=== PATIENT | female | born 1995 | race Caucasian/White ===

== ENCOUNTER → 2017-03-02 | Outpatient (CLI) | payer OTHER | LOC: EDBD → MW.CHOBGYN 09:54 | PROVIDERS: ATTEND Obstetrics & Gynecology | DX: Z34.90 Encounter for supervision of normal pregnancy, unspecified, unspecified trimester (principal) | CPT/HCPCS: 81003; 87491; 87591 ==

== ENCOUNTER → 2017-03-09 | Outpatient (CLI) | payer OTHER ==
--- NOTE | 2017-03-09 16:06 | US ---
Examination: Greater than 14 weeks transabdominal ultrasound with color Doppler and M-mode evaluatio n. HISTORY: Screening FINDINGS: LMP is 10/25/2016 EVALUATION: Posterior placenta with a cephalic lie and grade 1. Visually amniotic fluid is wit hin normal limits. Three-vessel cord is reported. Ventricles are within normal limits. Nuchal fold thickness is 2 mm. Four chamber heart is noted. Heart rate is 150 beats per minute. BIOMETRY AND GESTATIONAL AGE: Biparietal diameter 4.4 cm. The abdominal circumference measured 13.7 cm. The femoral length is 3.0 cm with head circumference of 16.9 cm. Gestational age is 19 weeks and 2 days. The expected date of delivery is approximately 08/01/2017. Fetus weight is 282 grams. Overall the fetus is within the 43r d percentile. Other detail anatomy summarized into PACs sheet after the images. Adequate LVOT and RVOT imaging is not provided. Mildly prominent renal pelvises bilaterally measurin g 5 mm. IMPRESSION: 1. Single active IU with cephalic fetus. 2. Posterior placenta with grade 1, no placenta previa. 3. Mildly prominent renal pelvises bilaterally measuring up to 5 mm. Follow-up may be benefici al.
== END ==
LOC: EDBD 13:48 → MW.US 13:48
PROVIDERS: ATTEND Obstetrics & Gynecology
DX: Z36 Encounter for antenatal screening of mother (principal); Z3A.19 19 weeks gestation of pregnancy
CPT/HCPCS: 76805; 76805-26

== ENCOUNTER 2017-07-25 00:20 | Inpatient (IN) | payer OTHER ==
[2017-07-25] MEDS ORDERED: Nalbuphine 10 MG/1 ML Vial IVPUSH PRN (00:30)
[2017-07-25] MEDS ORDERED: Misoprostol 200 MCG Tab PO PRN (00:30)
[2017-07-25] MEDS ORDERED: Sodium Chloride 0.9% 10 ML Syringe FLUSH PRN (00:30)
[2017-07-25] MEDS ORDERED: Methylergonovine 0.2 MG/1 ML Amp IM PRN (00:30)
[2017-07-25] MEDS ORDERED: Butorphanol 1 MG/ML SDV IVPUSH PRN (00:30)
[2017-07-25] MEDS ORDERED: Water For Irrigation,Sterile 1,000 ML Container IRR PRN (00:30)
[2017-07-25] MEDS ORDERED: Lidocaine 1% 50 ML MDV INJECT PRN (00:30)
[2017-07-25] MEDS ORDERED: Carboprost Tromethamine 250 MCG/1 ML Amp IM PRN (00:30)
[2017-07-25] MEDS ORDERED: Oxytocin/0.9 % Sodium Chloride 30 UNIT/500 ML BAG IV SCH ×2 (00:30→12:00)
[2017-07-25] MEDS ORDERED: Sodium Chloride 0.9% 2.5 ML Syringe FLUSH PRN (00:30)
[2017-07-25] MEDS ORDERED: Terbutaline 1 MG/ML SDV SUBCUT PRN (00:33)
[2017-07-25] MEDS ORDERED: FLU Vacc QS 2017-18 (36mos UP)/PF 60 MCG/0.5 ML Syringe IM ONE (00:45)
[2017-07-25] MEDS ORDERED: Misoprostol 25 MCG (1/4 of 100 MCG) Tab PO SCH (00:45)
[2017-07-25] MEDS ORDERED: Misoprostol 25 MCG (1/4 of 100 MCG) Tab VAG SCH (00:45)
[2017-07-25] MEDS: Misoprostol 25 MCG (1/4 of 100 MCG) Tab PO PRN ×2 (01:08→05:16)
[2017-07-25] MEDS: Misoprostol 25 MCG (1/4 of 100 MCG) Tab VAG PRN ×2 (01:13→05:24)
[2017-07-25] MEDS: Lactated Ringers 1,000 ML IV SCH ×3 (01:44→08:30)
[2017-07-25] MEDS ORDERED: hydrOXYzine Pamoate 25 MG Cap PO ONE (03:03)
--- NOTE | 2017-07-25 07:26 | PCM.PREANE ---
Preanesthetic Assessment - Procedure Proposed Procedure: MARLEN - Anesthesia/Transfusion/Family Hx Anesthesia History: No Prior Anesthesia Transfusion History: No Prior Transfusion(s) - Review of Systems General: No Symptoms Pulmonary: No Symptoms Cardiovascular: No Symptoms Gastrointestinal: No Symptoms Neurological: No Symptoms Other: Reports: None - Physical Assessment Height: 1.62 m Weight: 88.11 kg ASA Class: 1 Mental Status: Alert & Oriented x3 Airway Class: Mallampati = 3 Dentition: Reports: Normal Dentition Thyro-Mental Finger Breadths: 3 Mouth Opening Finger Breadths: 4 ROM/Head Extension: Full Lungs: Clear to Auscultation, Normal Respiratory Effort Cardiovascular: Regular Rate, Regular Rhythm - Lab Values: Laboratory Last Values WBC 10.24 K/uL (4.0-11.0) 07/25/17 00:44 RBC 4.22 M/uL (4.30-5.90) L 07/25/17 00:44 Hgb 11.8 g/dL (12.0-16.0) L 07/25/17 00:44 Hct 36.6 % (36.0-46.0) 07/25/17 00:44 MCV 86.7 fL (80.0-98.0) 10 00:44 MCH 28.0 pg (27.0-32.0) 07/25/17 00:44 MCHC 32.2 g/dL (31.0-37.0) 10 00:44 RDW Std Deviation 39.5 fl (28.0-62.0) 07/25/17 00:44 RDW Coeff of Fernando 13 % (11.0-15.0) 07/25/17 00:44 Plt Count 296 K/uL (150-400) 07/25/17 00:44 MPV 11.20 fL (7.40-12.00) 10 00:44 Blood Type B POSITIVE 07/25/17 00:44 Antibody Screen NEGATIVE 07/25/17 00:44 - Allergies Allergies/Adverse Reactions: Allergies Allergy/AdvReac Type Severity Reaction Status Date / Time No Known Allergies Allergy Verified 07/25/17 00:29 - Blood Blood Available: Yes Product(s) Available: PRBC - Anesthesia Plan Pre-Op Medication Ordered: None - Acknowledgements Anesthesia Type Planned: Epidural Pt an Appropriate Candidate for the Planned Anesthesia: Yes Alternatives and Risks of Anesthesia Discussed w Pt/Guardian: Yes Pt/Guardian Understands and Agrees with Anesthesia Plan: Yes PreAnesthesia Questionnaire - Past Health History Medical/Surgical History: Denies Medical/Surgical History HEENT History: Reports: None Cardiovascular History: Reports: None Respiratory History: Reports: None Gastrointestinal History: Reports: None Genitourinary History: Reports: None 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 Para: 0 Musculoskeletal History: Reports: None Neurological History: Reports: None Psychiatric History: Reports: None Endocrine/Metabolic History: Reports: None Hematologic History: Reports: None - Infectious Disease History Infectious Disease History: Reports: None - Past Surgical History HEENT Surgical History: Reports: Other (See Below) Other HEENT Surgeries/Procedures: tubes in ears as child - SUBSTANCE USE Smoking Status *Q: Never Smoker Second Hand Smoke Exposure: No - HOME MEDS Home Medications: Home Meds Melatonin 1 mg PO BEDTIME 07/25/17 [History] Vit W-Ca,Fe,FA(<1 mg) [ Vitamins] 1 tab PO DAILY 07/25/17 [ History] - CURRENT (IN HOUSE) MEDS Current Meds: Current Medications Butorphanol Tartrate (Stadol) 1 mg IVPUSH Q1H PRN PRN Reason: Pain Carboprost Tromethamine (Hemabate Ds) 250 mcg IM ASDIRECTED PRN PRN Reason: Post Hemorrhage Lactated Ringer's (Ringers, Lactated) 1,000 mls @ 150 mls/hr IV ASDIRECTED FRANCISCO Last Admin: 07/25/17 04:30 Dose: 150 mls/hr Oxytocin/Sodium Chloride (Oxytocin 30 Unit/500 Ml-Ns) 30 unit in 500 mls @ 999 mls/hr IV TITRATE FRANCISCO Lidocaine HCl (Xylocaine 1%) 50 ml INJECT .ONCE PRN PRN Reason: Laceration repair Methylergonovine Maleate (Methergine) 0.2 mg IM ASDIRECTED PRN PRN Reason: Post Hemorrhage Misoprostol (Cytotec) 200 mcg PO .ONCE PRN PRN Reason: Post Hemorrhage Misoprostol (Cytotec) 25 mcg VAG .ONCE FRANCISCO Misoprostol (Cytotec) 25 mcg VAG Q4H PRN PRN Reason: Cervical Ripening Last Admin: 07/25/17 05:24 Dose: 25 mcg Misoprostol (Cytotec) 25 mcg PO Q4H PRN PRN Reason: Cervical Ripening Last Admin: 07/25/17 05:16 Dose: 25 mcg Nalbuphine HCl (Nubain) 10 mg IVPUSH Q1H PRN PRN Reason: Pain (severe 7-10) Sodium Chloride (Saline Flush) 10 ml FLUSH ASDIRECTED PRN PRN Reason: Keep Vein Open Sodium Chloride (Saline Flush) 2.5 ml FLUSH ASDIRECTED PRN PRN Reason: Keep Vein Open Sterile Water (Sterile Water For Irrigation) 1,000 ml IRR ASDIRECTED PRN PRN Reason: delivery Terbutaline Sulfate (Brethine) 0.25 mg SUBCUT ASDIRECTED PRN PRN Reason: Tacysystole Discontinued Medications Hydroxyzine Pamoate (Vistaril) 25 mg PO ONETIME ONE Stop: 07/25/17 03:04 Last Admin: 07/25/17 03:09 Dose: 25 mg Misoprostol (Cytotec) 25 mcg PO .ONCE FRANCISCO
[2017-07-25] MEDS ORDERED: fentaNYL 100 MCG/2 ML SDV ONE (07:36)
[2017-07-25] MEDS ORDERED: Ropivacaine HCl/PF 100 ML ONE (07:37)
--- NOTE | 2017-07-25 08:08 | PCM.LDHP ---
L&D History of Present Illness - General Date of Service: 07/25/17 Admit Problem/Dx: Patient Status Order with Admit Dx/Problem 07/25/17 00:30 Patient Status [ADT] Routine Admission Diagnosis/Problem Admission Diagnosis/Problem Source of Information: Patient History Limitations: Reports: No Limitations - History of Present Illness Improves with: Reports: None Worsens with: Reports: None Associated Symptoms: Reports: N - Related Data Allergies/Adverse Reactions: Allergies Allergy/AdvReac Type Severity Reaction Status Date / Time No Known Allergies Allergy Verified 07/25/17 00:29 Home Medications: Home Meds Melatonin 1 mg PO BEDTIME 07/25/17 [History] Vit W-Ca,Fe,FA(<1 mg) [ Vitamins] 1 tab PO DAILY 07/25/17 [ History] Past Medical History - Past Health History Medical/Surgical History: Denies Medical/Surgical History HEENT History: Reports: None Cardiovascular History: Reports: None Respiratory History: Reports: None Gastrointestinal History: Reports: None Genitourinary History: Reports: None 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: Musculoskeletal History: Reports: None Neurological History: Reports: None Psychiatric History: Reports: None Endocrine/Metabolic History: Reports: None Hematologic History: Reports: None - Infectious Disease History Infectious Disease History: Reports: None - Past Surgical History HEENT Surgical History: Reports: Other (See Below) Other HEENT Surgeries/Procedures: tubes in ears as child Social & Family History - Tobacco Use Smoking Status *Q: Never Smoker Second Hand Smoke Exposure: No H&P Review of Systems - Review of Systems: Review Of Systems: See Below General: Reports: No Symptoms HEENT: Reports: No Symptoms Pulmonary: Reports: No Symptoms Cardiovascular: Reports: No Symptoms Gastrointestinal: Reports: No Symptoms Genitourinary: Reports: No Symptoms Musculoskeletal: Reports: No Symptoms Skin: Reports: No Symptoms Psychiatric: Reports: No Symptoms Neurological: Reports: No Symptoms Hematologic/Lymphatic: Reports: No Symptoms Immunologic: Reports: No Symptoms L&D Exam - Exam Exam: See Below - Vital Signs Weight: 88.11 kg - OB Specific Fundal Height In cm: 38 Contraction Intensity: Moderate to Strong Movement: Active Heart Tones: Present Heart Rate (FHR) Variability: Moderate (6-25 bmp) Presentation: Vertex - Andrews Score Andrews Score Cervix Position: Anterior Andrews Score Consistency: Soft Andrews Score Effacement: >80% Andrews Score Dilation: > 5 cm Andrews Score 's Station: -1 ,0 Andrews Score Total: 12 - Exam General: Alert, Oriented HEENT: PERRLA, Conjunctiva Clear, EACs Clear, EOMI, Hearing Intact, Mucosa Moist & [place], Nares Patent, Normal Nasal Septum, Posterior Pharynx Clear, TMs Clear Neck: Supple, Trachea Midline Lungs: Clear to Auscultation, Normal Respiratory Effort Cardiovascular: Regular Rate, Regular Rhythm GI/Abdominal Exam: Normal Bowel Sounds, Soft, Non-Tender, No Organomegaly, No Distention, No Abnormal Bruit, No Mass, Pelvis Stable Rectal Exam: Normal Exam, Normal Rectal Tone Genitourinary: Normal external exam, Normal bimanual exam, Normal speculum exam Back Exam: Normal Inspection, Full Range of Motion Extremities: Normal Inspection, Normal Range of Motion, Non-Tender, No Pedal Edema, Normal Capillary Refill Skin: Warm, Dry, Intact Neurological: Cranial Nerves Intact, Reflexes Equal Bilateral Psychiatric: Alert, Normal Affect, Normal Mood - Patient Data Lab Results Last 24 hrs: Laboratory Results - last 24 hr 07/25/17 07/25/17 Range/Units 00:44 00:44 WBC 10.24 (4.0-11.0) K/uL RBC 4.22 L (4.30-5.90) M/uL Hgb 11.8 L (12.0-16.0) g/dL Hct 36.6 (36.0-46.0) % MCV 86.7 (80.0-98.0) fL MCH 28.0 (27.0-32.0) pg MCHC 32.2 (31.0-37.0) g/dL RDW Std Deviation 39.5 (28.0-62.0) fl RDW Coeff of Fernando 13 (11.0-15.0) % Plt Count 296 (150-400) K/uL MPV 11.20 (7.40-12.00) fL Blood Type B POSITIVE Antibody Screen NEGATIVE Result Diagrams: 07/25/17 00:44 Problem List Initiated/Reviewed/Updated: Yes Orders Last 24hrs: Active Orders 24 hr Category Date Time Status Patient Status [ADT] Routine ADT 07/25/17 00:30 Active Bedrest Bathroom Privileges [RC] ASDIRECTED Care 07/25/17 00:33 Active Communication Order [RC] ASDIRECTED Care 07/25/17 00:33 Active Communication Order [RC] ASDIRECTED Care 07/25/17 00:33 Active Communication Order [RC] ASDIRECTED Care 07/25/17 00:33 Active Heart Tones [RC] CONTINUOUS Care 07/25/17 00:30 Active Non Stress Test [RC] PER UNIT ROUTINE Care 07/25/17 00:30 Active May Shower [RC] ASDIRECTED Care 07/25/17 00:30 Active Notify Provider [RC] PRN Care 07/25/17 00:30 Active Notify Provider [RC] PRN Care 07/25/17 00:33 Active Notify Provider [RC] PRN Care 07/25/17 00:33 Active Notify Provider [RC] STAT Care 07/25/17 00:33 Active Oxygen Therapy [RC] ASDIRECTED Care 07/25/17 00:33 Active Up ad Lisa [RC] ASDIRECTED Care 07/25/17 00:30 Active Vaginal Exam [RC] PRN Care 07/25/17 00:30 Active Vaginal Exam [RC] PRN Care 07/25/17 00:33 Active Vital Signs [RC] PER UNIT ROUTINE Care 07/25/17 00:30 Active Vital Signs [RC] PER UNIT ROUTINE Care 07/25/17 00:33 Active Butorphanol [Stadol] Med 07/25/17 00:30 Active 1 mg IVPUSH Q1H PRN Carboprost Tromethamine [Hemabate DS] Med 07/25/17 00:30 Active 250 mcg IM ASDIRECTED PRN Lactated Ringers [Ringers, Lactated] 1,000 ml Med 07/25/17 00:30 Active IV ASDIRECTED Lidocaine 1% [Xylocaine 1%] Med 07/25/17 00:30 Active 50 ml INJECT .ONCE PRN Methylergonovine [Methergine] Med 07/25/17 00:30 Active 0.2 mg IM ASDIRECTED PRN Misoprostol [Cytotec] Med 07/25/17 00:30 Active 200 mcg PO .ONCE PRN Misoprostol [Cytotec] Med 07/25/17 00:33 Active 25 mcg PO Q4H PRN Misoprostol [Cytotec] Med 07/25/17 00:45 Active 25 mcg VAG .ONCE Misoprostol [Cytotec] Med 07/25/17 00:33 Active 25 mcg VAG Q4H PRN Nalbuphine [Nubain] Med 07/25/17 00:30 Active 10 mg IVPUSH Q1H PRN Oxytocin/0.9 % Sodium Chloride [Oxytocin 30 Unit/500 ML Med 07/25/17 00:30 Active -NS] 30 unit in 500 ml IV TITRATE Sodium Chloride 0.9% [Saline Flush] Med 07/25/17 00:30 Active 10 ml FLUSH ASDIRECTED PRN Sodium Chloride 0.9% [Saline Flush] Med 07/25/17 00:30 Active 2.5 ml FLUSH ASDIRECTED PRN Terbutaline [Brethine] Med 07/25/17 00:33 Active 0.25 mg SUBCUT ASDIRECTED PRN Water For Irrigation,Sterile [Sterile Water for Med 07/25/17 00:30 Active Irrigation] 1,000 ml IRR ASDIRECTED PRN Scalp Electrode [WOMSER] Per Unit Routine Oth 07/25/17 00:30 Ordered Medication Administration Instruction [OM.PC] Q3H Oth 07/25/17 00:45 Ordered Peripheral IV Insertion Adult [OM.PC] Routine Oth 07/25/17 00:30 Ordered Resuscitation Status Routine Resus Stat 07/25/17 00:30 Ordered Medication Orders Butorphanol Tartrate (Stadol) 1 mg IVPUSH Q1H PRN PRN Reason: Pain Carboprost Tromethamine (Hemabate Ds) 250 mcg IM ASDIRECTED PRN PRN Reason: Post Hemorrhage Lactated Ringer's (Ringers, Lactated) 1,000 mls @ 150 mls/hr IV ASDIRECTED FRANCISCO Last Admin: 07/25/17 04:30 Dose: 150 mls/hr Infusion: 07/25/17 02:45 Dose: 999 mls/hr Admin: 07/25/17 01:44 Dose: 999 mls/hr Oxytocin/Sodium Chloride (Oxytocin 30 Unit/500 Ml-Ns) 30 unit in 500 mls @ 999 mls/hr IV TITRATE FRANCISCO Lidocaine HCl (Xylocaine 1%) 50 ml INJECT .ONCE PRN PRN Reason: Laceration repair Methylergonovine Maleate (Methergine) 0.2 mg IM ASDIRECTED PRN PRN Reason: Post Hemorrhage Misoprostol (Cytotec) 200 mcg PO .ONCE PRN PRN Reason: Post Hemorrhage Misoprostol (Cytotec) 25 mcg VAG .ONCE FRANCISCO Misoprostol (Cytotec) 25 mcg VAG Q4H PRN PRN Reason: Cervical Ripening Last Admin: 07/25/17 05:24 Dose: 25 mcg Admin: 07/25/17 01:13 Dose: 25 mcg Misoprostol (Cytotec) 25 mcg PO Q4H PRN PRN Reason: Cervical Ripening Last Admin: 07/25/17 05:16 Dose: 25 mcg Admin: 07/25/17 01:08 Dose: 25 mcg Nalbuphine HCl (Nubain) 10 mg IVPUSH Q1H PRN PRN Reason: Pain (severe 7-10) Sodium Chloride (Saline Flush) 10 ml FLUSH ASDIRECTED PRN PRN Reason: Keep Vein Open Sodium Chloride (Saline Flush) 2.5 ml FLUSH ASDIRECTED PRN PRN Reason: Keep Vein Open Sterile Water (Sterile Water For Irrigation) 1,000 ml IRR ASDIRECTED PRN PRN Reason: delivery Terbutaline Sulfate (Brethine) 0.25 mg SUBCUT ASDIRECTED PRN PRN Reason: Tacysystole Assessment/Plan Comment:: Term (39+) P0000 Admitted for elective induction.
[2017-07-25] MEDS ORDERED: Lanolin 100% Cream 7 GM Tube TOP PRN (17:39)
[2017-07-25] MEDS ORDERED: Docusate Sodium 100 MG Cap PO PRN (17:39)
[2017-07-25] MEDS ORDERED: oxyCODONE 5 MG Tab PO PRN (17:39)
[2017-07-25] MEDS ORDERED: Acetaminophen 500 MG Tab PO PRN ×2 (17:39)
[2017-07-25] MEDS ORDERED: Bisacodyl 10 MG Supp RECTAL PRN (17:39)
[2017-07-25] MEDS ORDERED: Benzocaine/Menthol 20%-0.5% Spray 78 GM Cannister TOP PRN (17:39)
[2017-07-25] MEDS ORDERED: Ibuprofen 400 MG Tab PO PRN (17:39)
[2017-07-25] MEDS ORDERED: Witch Hazel Medicated Pads 40/Jar TOP PRN (17:39)
--- NOTE | 2017-07-25 17:48 | PCM.DEL ---
L & D Note - General Info Date of Service: 07/25/17 Mother's Due Date: 08/01/17 - Delivery Note Labor: Augmented by Oxytocin Cervical Ripening Method: Misoprostil Delivery Outcome: Livebirth Delivery Method: Spontaneous Vaginal Delivery-Single Infant Delivery Mode: Spontaneous Presentation: Vertex Nuchal Cord: Present Anesthesia Type: Epidural Anesthetic: Lidocaine (Xylocaine) 1% Plain Local Anesthetic Volume: 1cc Amniotic Fluid Description: Clear Episiotomy Type: None Laceration: 2nd Degree Suture type: Vicryl Suture size: 3-0 Placenta: Intact, Spontaneous Cord: 3 Vessels Estimated Blood Loss: 200 Resuscitation Needed: No : Stimulated Score 1 min: 8 Score 5 min: 9 Second Stage Interventions: Reports: Pushing, Pulls Own Legs Back Delivery Comments (Free Text/Narrative):: of viable male over intact perineum. Head delivered OP, nuchal x1 reduced over head, shoulders and body followed easily. to mothers abdomen. Pitocin to IVF, Delayed cord clamping. Cord clamped x2 and cut. Cord blood collected. Placenta delivered grossly intact. Inspection noted 2nd degree laceration, repaired in usual manor with a 3-0 carlos. EBL 200cc. APGARS 8/9 Wt 7lb 2oz. Mother and left in stable condition for recovery. Induction Criteria - Induction Gestational Age >/= 39 wks: Yes Estimated Pelvis: Reports: Adequate Reassuring Monitoring Strip: Yes Absence of Tachy Systole: Yes - General Info Admission Dx/Problem (Free Text): Patient Status Order with Admit Dx/Problem 07/25/17 00:30 Patient Status [ADT] Routine Admission Diagnosis/Problem Admission Diagnosis/Problem Functional Status: Reports: Pain Controlled - Review of Systems General: Reports: No Symptoms HEENT: Reports: No Symptoms Pulmonary: Reports: No Symptoms Cardiovascular: Reports: No Symptoms Gastrointestinal: Reports: No Symptoms Genitourinary: Reports: No Symptoms Musculoskeletal: Reports: No Symptoms Skin: Reports: No Symptoms Neurological: Reports: No Symptoms Psychiatric: Reports: No Symptoms - Patient Data Weight - Most Recent: 88.11 kg Lab Results Last 24 Hours: Laboratory Results - last 24 hr 07/25/17 07/25/17 Range/Units 00:44 00:44 WBC 10.24 (4.0-11.0) K/uL RBC 4.22 L (4.30-5.90) M/uL Hgb 11.8 L (12.0-16.0) g/dL Hct 36.6 (36.0-46.0) % MCV 86.7 (80.0-98.0) fL MCH 28.0 (27.0-32.0) pg MCHC 32.2 (31.0-37.0) g/dL RDW Std Deviation 39.5 (28.0-62.0) fl RDW Coeff of Feranndo 13 (11.0-15.0) % Plt Count 296 (150-400) K/uL MPV 11.20 (7.40-12.00) fL Blood Type B POSITIVE Antibody Screen NEGATIVE Med Orders - Current: Current Medications Acetaminophen (Tylenol Extra Strength) 500 mg PO Q4H PRN PRN Reason: Pain Acetaminophen (Tylenol Extra Strength) 1,000 mg PO Q4H PRN PRN Reason: Pain Benzocaine/Menthol (Dermoplast Pain Relief 20%-0.5% Archbald) 78 gm TOP ASDIRECTED PRN PRN Reason: Perineal Comfort Measure Bisacodyl (Dulcolax) 10 mg RECTAL .ONCE PRN PRN Reason: Constipation Docusate Sodium (Colace) 100 mg PO BID PRN PRN Reason: Constipation Emollient Ointment (Lansinoh Hpa) 0 gm TOP ASDIRECTED PRN PRN Reason: Sore Nipples Ibuprofen (Motrin) 400 mg PO Q4H PRN PRN Reason: Pain Ibuprofen (Motrin) 800 mg PO Q6H PRN PRN Reason: Pain Oxycodone HCl (Oxycodone) 5 mg PO Q2H PRN PRN Reason: Pain Witch Che (Tucks) 1 pad TOP ASDIRECTED PRN PRN Reason: comfort care Discontinued Medications Butorphanol Tartrate (Stadol) 1 mg IVPUSH Q1H PRN PRN Reason: Pain Carboprost Tromethamine (Hemabate Ds) 250 mcg IM ASDIRECTED PRN PRN Reason: Post Hemorrhage Fentanyl (Sublimaze) Confirm Administered Dose 100 mcg .ROUTE .STK-MED ONE Stop: 07/25/17 07:37 Hydroxyzine Pamoate (Vistaril) 25 mg PO ONETIME ONE Stop: 07/25/17 03:04 Last Admin: 07/25/17 03:09 Dose: 25 mg Lactated Ringer's (Ringers, Lactated) 1,000 mls @ 150 mls/hr IV ASDIRECTED FRANCISCO Last Admin: 07/25/17 08:30 Dose: 150 mls/hr Oxytocin/Sodium Chloride (Oxytocin 30 Unit/500 Ml-Ns) 30 unit in 500 mls @ 999 mls/hr IV TITRATE FRANCISCO Last Admin: 07/25/17 16:22 Dose: 250 mls/hr Ropivacaine (Naropin 0.2%) Confirm Administered Dose 100 mls @ as directed .ROUTE .[facility]-MED ONE Stop: 07/25/17 07:38 Oxytocin/Sodium Chloride (Oxytocin 30 Unit/500 Ml-Ns) 30 unit in 500 mls @ 2 mls/hr IV TITRATE FRANCISCO; 2 MUNITS/MIN PRN Reason: Protocol Lidocaine HCl (Xylocaine 1%) 50 ml INJECT .ONCE PRN PRN Reason: Laceration repair Last Admin: 07/25/17 16:52 Dose: 50 ml Methylergonovine Maleate (Methergine) 0.2 mg IM ASDIRECTED PRN PRN Reason: Post Hemorrhage Misoprostol (Cytotec) 200 mcg PO .ONCE PRN PRN Reason: Post Hemorrhage Misoprostol (Cytotec) 25 mcg VAG .ONCE FRANCISCO Misoprostol (Cytotec) 25 mcg VAG Q4H PRN PRN Reason: Cervical Ripening Last Admin: 07/25/17 05:24 Dose: 25 mcg Misoprostol (Cytotec) 25 mcg PO .ONCE FRANCISCO Misoprostol (Cytotec) 25 mcg PO Q4H PRN PRN Reason: Cervical Ripening Last Admin: 07/25/17 05:16 Dose: 25 mcg Nalbuphine HCl (Nubain) 10 mg IVPUSH Q1H PRN PRN Reason: Pain (severe 7-10) Sodium Chloride (Saline Flush) 10 ml FLUSH ASDIRECTED PRN PRN Reason: Keep Vein Open Sodium Chloride (Saline Flush) 2.5 ml FLUSH ASDIRECTED PRN PRN Reason: Keep Vein Open Sterile Water (Sterile Water For Irrigation) 1,000 ml IRR ASDIRECTED PRN PRN Reason: delivery Terbutaline Sulfate (Brethine) 0.25 mg SUBCUT ASDIRECTED PRN PRN Reason: Tacysystole - Exam General: Alert, Oriented, Cooperative, No Acute Distress Lungs: Normal Respiratory Effort GI/Abdominal Exam: Soft, Non-Tender (Female) Exam: Normal External Exam, Normal Bimanual Exam, Vaginal Bleeding Back Exam: Full Range of Motion Extremities: Normal Range of Motion, Non-Tender, No Pedal Edema, Normal Capillary Refill Skin: Warm, Dry, Intact Wound/Incisions: Healing Well Neurological: No New Focal Deficit, Normal Speech, Normal Tone Psy/Mental Status: Alert, Normal Affect, Normal Mood - Problem List & Annotations (1) Supervision of normal IUP (intrauterine ) in primigravida SNOMED Code(s): 14117688, 799351594, 314983558 Code(s): Z34.00 - ENCNTR FOR SUPRVSN OF NORMAL FIRST , UNSP TRIMESTER Status: Acute Priority: High Current Visit: Yes Qualifiers: Trimester: third trimester Qualified Code(s): Z34.03 - Encounter for supervision of normal first , third trimester (2) (normal spontaneous vaginal delivery) SNOMED Code(s): 59447242 Code(s): O80 - ENCOUNTER FOR FULL-TERM UNCOMPLICATED DELIVERY Status: Acute Priority: High Current Visit: Yes - Problem List Review Problem List Initiated/Reviewed/Updated: Yes - My Orders Last 24 Hours: My Active Orders 07/25/17 17:39 Patient Status [ADT] Routine May Shower [RC] ASDIRECTED Up ad Lisa [RC] ASDIRECTED Vital Signs [RC] PER UNIT ROUTINE Acetaminophen [Tylenol Extra Strength] 1,000 mg PO Q4H PRN Acetaminophen [Tylenol Extra Strength] 500 mg PO Q4H PRN Benzocaine/Menthol [Dermoplast Pain Relief 20%-0.5% Archbald] 78 gm TOP ASDIRECTED PRN Bisacodyl [Dulcolax] 10 mg RECTAL .ONCE PRN Docusate Sodium [Colace] 100 mg PO BID PRN Ibuprofen [Motrin] 400 mg PO Q4H PRN Ibuprofen [Motrin] 800 mg PO Q6H PRN Lanolin [Lansinoh HPA] See Dose Instructions TOP ASDIRECTED PRN Witch Che [Tucks] 1 pad TOP ASDIRECTED PRN oxyCODONE 5 mg PO Q2H PRN Assess Lochia [WOMSER] Per Unit Routine Assess Uterine Involution [WOMSER] Per Unit Routine Peripheral IV Discontinue [OM.PC] Routine Resuscitation Status Routine 07/25/17 Dinner Regular Diet [DIET] - Assessment Assessment:: of viable male, APGARS 8/9, Wt 7lb 2oz. 2nd deg lac with repair. EBL 200cc. Stable - Plan Plan:: Term (39+) P0000 Admitted for elective induction. Delivery routine pp plan of care
[2017-07-25] MEDS: Ibuprofen 800 MG Tab PO PRN ×2 (17:58→23:35)
[2017-07-26] MEDS: Ibuprofen 800 MG Tab PO PRN (07:18)
--- NOTE | 2017-07-26 08:25 | PCM.DCSUM1 ---
Discharge Summary - Hospital Course Free Text/Narrative:: Discharge home with . Follow up 6 weeks or sooner if needed. - Discharge Data Discharge Date: 07/26/17 Discharge Disposition: Home, Self-Care 01 Condition: Good - Discharge Diagnosis/Problem(s) (1) Supervision of normal IUP (intrauterine ) in primigravida SNOMED Code(s): 20787631, 716093986, 016079877 ICD Code: Z34.00 - ENCNTR FOR SUPRVSN OF NORMAL FIRST , UNSP TRIMESTER Status: Acute Priority: High Current Visit: Yes Qualifiers: Trimester: third trimester Qualified Code(s): Z34.03 - Encounter for supervision of normal first , third trimester (2) (normal spontaneous vaginal delivery) SNOMED Code(s): 21105860 ICD Code: O80 - ENCOUNTER FOR FULL-TERM UNCOMPLICATED DELIVERY Status: Acute Priority: High Current Visit: Yes - Patient Instructions Diet: Usual Diet as Tolerated Activity: As Tolerated, Rest and Relax Today Driving: May Drive Today Showering/Bathing: May Shower Notify Provider of: Fever, Increased Pain, Swelling and Redness, Nausea and/or Vomiting Other/Special Instructions: Discharge home with . Follow up 6 weeks or sooner if needed. - Discharge Plan Home Medications: Home Meds Melatonin 1 mg PO BEDTIME 07/25/17 [History] Vit W-Ca,Fe,FA(<1 mg) [ Vitamins] 1 tab PO DAILY 07/25/17 [ History] Referrals: [facility] [Outside] Dustin Ventura MD [Physician] - 09/05/17 9:30 am - General Info Date of Service: 07/26/17 Admission Dx/Problem (Free Text: Patient Status Order with Admit Dx/Problem 07/25/17 00:30 Patient Status [ADT] Routine Admission Diagnosis/Problem Admission Diagnosis/Problem Functional Status: Reports: Pain Controlled, Tolerating Diet, Ambulating, Urinating - Review of Systems General: Reports: No Symptoms HEENT: Reports: No Symptoms Pulmonary: Reports: No Symptoms Cardiovascular: Reports: No Symptoms Gastrointestinal: Reports: No Symptoms Genitourinary: Reports: No Symptoms Musculoskeletal: Reports: No Symptoms Skin: Reports: No Symptoms Neurological: Reports: No Symptoms Psychiatric: Reports: No Symptoms - Patient Data Vitals - Most Recent: Last Vital Signs Temp 36.4 C 07/26/17 04:30 Pulse 87 07/26/17 08:00 Resp 14 07/26/17 08:00 BP 113/58 L 07/26/17 08:00 Pulse Ox 95 07/26/17 08:00 Weight - Most Recent: 88.11 kg Med Orders - Current: Current Medications Acetaminophen (Tylenol Extra Strength) 500 mg PO Q4H PRN PRN Reason: Pain Acetaminophen (Tylenol Extra Strength) 1,000 mg PO Q4H PRN PRN Reason: Pain Last Admin: 07/25/17 17:59 Dose: 1,000 mg Benzocaine/Menthol (Dermoplast Pain Relief 20%-0.5% [place]) 78 gm TOP ASDIRECTED PRN PRN Reason: Perineal Comfort Measure Bisacodyl (Dulcolax) 10 mg RECTAL .ONCE PRN PRN Reason: Constipation Docusate Sodium (Colace) 100 mg PO BID PRN PRN Reason: Constipation Last Admin: 07/25/17 20:13 Dose: 100 mg Emollient Ointment (Lansinoh Hpa) 0 gm TOP ASDIRECTED PRN PRN Reason: Sore Nipples Last Admin: 07/25/17 20:13 Dose: 1 tube Ibuprofen (Motrin) 400 mg PO Q4H PRN PRN Reason: Pain Ibuprofen (Motrin) 800 mg PO Q6H PRN PRN Reason: Pain Last Admin: 07/26/17 07:18 Dose: 800 mg Oxycodone HCl (Oxycodone) 5 mg PO Q2H PRN PRN Reason: Pain Witch Che (Tucks) 1 pad TOP ASDIRECTED PRN PRN Reason: comfort care Discontinued Medications Butorphanol Tartrate (Stadol) 1 mg IVPUSH Q1H PRN PRN Reason: Pain Carboprost Tromethamine (Hemabate Ds) 250 mcg IM ASDIRECTED PRN PRN Reason: Post Hemorrhage Fentanyl (Sublimaze) Confirm Administered Dose 100 mcg .ROUTE .STK-MED ONE Stop: 07/25/17 07:37 Last Admin: 07/26/17 04:55 Dose: Not Given Hydroxyzine Pamoate (Vistaril) 25 mg PO ONETIME ONE Stop: 07/25/17 03:04 Last Admin: 07/25/17 03:09 Dose: 25 mg Lactated Ringer's (Ringers, Lactated) 1,000 mls @ 150 mls/hr IV ASDIRECTED FRANCISCO Last Admin: 07/25/17 08:30 Dose: 150 mls/hr Oxytocin/Sodium Chloride (Oxytocin 30 Unit/500 Ml-Ns) 30 unit in 500 mls @ 999 mls/hr IV TITRATE FRANCISCO Last Admin: 07/25/17 16:22 Dose: 250 mls/hr Ropivacaine (Naropin 0.2%) Confirm Administered Dose 100 mls @ as directed .ROUTE .[facility]-MED ONE Stop: 07/25/17 07:38 Last Admin: 07/26/17 04:55 Dose: Not Given Oxytocin/Sodium Chloride (Oxytocin 30 Unit/500 Ml-Ns) 30 unit in 500 mls @ 2 mls/hr IV TITRATE FRANCISCO; 2 MUNITS/MIN PRN Reason: Protocol Lidocaine HCl (Xylocaine 1%) 50 ml INJECT .ONCE PRN PRN Reason: Laceration repair Last Admin: 07/25/17 16:52 Dose: 50 ml Methylergonovine Maleate (Methergine) 0.2 mg IM ASDIRECTED PRN PRN Reason: Post Hemorrhage Misoprostol (Cytotec) 200 mcg PO .ONCE PRN PRN Reason: Post Hemorrhage Misoprostol (Cytotec) 25 mcg VAG .ONCE FRANCISCO Misoprostol (Cytotec) 25 mcg VAG Q4H PRN PRN Reason: Cervical Ripening Last Admin: 07/25/17 05:24 Dose: 25 mcg Misoprostol (Cytotec) 25 mcg PO .ONCE FRANCISCO Misoprostol (Cytotec) 25 mcg PO Q4H PRN PRN Reason: Cervical Ripening Last Admin: 07/25/17 05:16 Dose: 25 mcg Nalbuphine HCl (Nubain) 10 mg IVPUSH Q1H PRN PRN Reason: Pain (severe 7-10) Sodium Chloride (Saline Flush) 10 ml FLUSH ASDIRECTED PRN PRN Reason: Keep Vein Open Sodium Chloride (Saline Flush) 2.5 ml FLUSH ASDIRECTED PRN PRN Reason: Keep Vein Open Sterile Water (Sterile Water For Irrigation) 1,000 ml IRR ASDIRECTED PRN PRN Reason: delivery Terbutaline Sulfate (Brethine) 0.25 mg SUBCUT ASDIRECTED PRN PRN Reason: Tacysystole - Exam General: Reports: Alert, Oriented, Cooperative, No Acute Distress Lungs: Reports: Normal Respiratory Effort GI/Abdominal Exam: Soft (Female) Exam: Vaginal Bleeding Rectal (Female) Exam: Deferred Back Exam: Reports: Full Range of Motion Extremities: Normal Range of Motion, Non-Tender, No Pedal Edema, Normal Capillary Refill Skin: Reports: Warm, Dry, Intact Wound/Incisions: Reports: Healing Well Neurological: Reports: No New Focal Deficit, Normal Speech, Normal Tone Psy/Mental Status: Reports: Alert, Normal Affect, Normal Mood *Q Meaningful Use (DIS) - VTE *Q VTE Criteria *Q: - Stroke *Q Stroke Criteria *Q: - AMI *Q AMI Criteria *Q:
[2017-07-26 16:32] VITALS: BP 107/55
--- NOTE | 2017-07-26 17:13 | PCM48HPAN ---
Post Anesthesia Note - EVALUATION WITHIN 48HRS OF ANESTHETIC Vital Signs in Normal Range: Yes Patient Participated in Evaluation: Yes Respiratory Function Stable: Yes Airway Patent: Yes Cardiovascular Function Stable: Yes Hydration Status Stable: Yes Pain Control Satisfactory: Yes Nausea and Vomiting Control Satisfactory: Yes Mental Status Recovered: Yes - COMMENTS/OBSERVATIONS Free Text/Narrative:: Denies any complaints except that back is sore.
[2017-07-26] MEDS: Lactated Ringers 1,000 ML IV SCH (18:42)
== END 2017-07-26 20:00 | disposition home or self-care (01) | DRG 775 ==
LOC: MW.OBCHECK 00:20 → MW.OB 00:29 → OBSVTOIN 16:20 → MW.OB 16:20
PROVIDERS: ATTEND Obstetrics & Gynecology
PROC: 10E0XZZ Delivery of Products of Conception, External Approach (ICD-10-PCS; principal; 2017-07-25)
PROC: 0KQM0ZZ Repair Perineum Muscle, Open Approach (ICD-10-PCS; 2017-07-25)
PROC: 3E0P7GC Introduction of Other Therapeutic Substance into Female Reproductive, Via Natural or Artificial Opening (ICD-10-PCS; 2017-07-25)
DX: O70.1 Second degree perineal laceration during delivery (principal); Z37.0 Single live birth; Z3A.39 39 weeks gestation of pregnancy
CPT/HCPCS: 51702; 59025; 59409; 85027; 86850; 86900; 86901; 90686; A9270-GY; J2590; J7120

== ENCOUNTER 2019-02-07 02:48 | Inpatient (IN) | payer OTHER ==
[2019-02-07] MEDS ORDERED: Butorphanol 1 MG/ML SDV IVPUSH PRN (02:58)
[2019-02-07] MEDS ORDERED: Sodium Chloride 0.9% 10 ML SDV IV PRN (02:58)
[2019-02-07] MEDS ORDERED: Lidocaine 1% 50 ML MDV INJECT PRN (02:58)
[2019-02-07] MEDS ORDERED: Water For Irrigation,Sterile 1,000 ML Container IRR PRN (02:58)
[2019-02-07] MEDS ORDERED: Methylergonovine 0.2 MG/1 ML Amp IM PRN (02:58)
[2019-02-07] MEDS ORDERED: Carboprost Tromethamine 250 MCG/1 ML Amp IM PRN (02:58)
[2019-02-07] MEDS ORDERED: Tranexamic Acid 1,000 MG in Sodium Chloride 0.9% 100 ML IV PRN (02:58)
[2019-02-07] MEDS ORDERED: Nalbuphine 10 MG/1 ML Vial IVPUSH PRN (02:58)
[2019-02-07] MEDS ORDERED: Sodium Chloride 0.9% 2.5 ML Syringe FLUSH PRN (02:58)
[2019-02-07] MEDS ORDERED: Misoprostol 200 MCG Tab PO PRN (02:58)
[2019-02-07] MEDS ORDERED: Sodium Chloride 0.9% 10 ML Syringe FLUSH PRN (02:58)
[2019-02-07] MEDS ORDERED: Oxytocin/0.9 % Sodium Chloride 30 UNIT/500 ML BAG IV SCH (03:00)
[2019-02-07] MEDS ORDERED: Lactated Ringers 1,000 ML IV SCH (03:00)
[2019-02-07] MEDS ORDERED: Oxytocin 10 Units/1 ML SDV ONE (03:09)
--- NOTE | 2019-02-07 03:24 | PCM.LDHP ---
L&D History of Present Illness - General Date of Service: 02/07/19 Admit Problem/Dx: Patient Status Order with Admit Dx/Problem 02/07/19 02:58 Patient Status [ADT] Routine Admission Diagnosis/Problem Admission Diagnosis/Problem - planned Source of Information: Patient History Limitations: Reports: No Limitations - History of Present Illness Improves with: Reports: None Worsens with: Reports: None Associated Symptoms: Reports: N - Related Data Allergies/Adverse Reactions: Allergies Allergy/AdvReac Type Severity Reaction Status Date / Time No Known Allergies Allergy Verified 07/25/17 00:29 Home Medications: Home Meds Melatonin 1 mg PO BEDTIME 07/25/17 [History] Vit Calc,Iron,Folic [ Vitamins] 1 tab PO DAILY 07/25/17 [ History] Past Medical History - Past Health History Medical/Surgical History: Denies Medical/Surgical History HEENT History: Reports: None Cardiovascular History: Reports: None Respiratory History: Reports: None Gastrointestinal History: Reports: None Genitourinary History: Reports: None CLIENT EVALUATOR History: Reports: Musculoskeletal History: Reports: None Neurological History: Reports: None Psychiatric History: Reports: None Endocrine/Metabolic History: Reports: None Hematologic History: Reports: None - Infectious Disease History Infectious Disease History: Reports: None - Past Surgical History HEENT Surgical History: Reports: Other (See Below) Other HEENT Surgeries/Procedures: tubes in ears as child H&P Review of Systems - Review of Systems: Review Of Systems: See Below General: Reports: No Symptoms HEENT: Reports: No Symptoms Pulmonary: Reports: No Symptoms Cardiovascular: Reports: No Symptoms Gastrointestinal: Reports: No Symptoms Genitourinary: Reports: No Symptoms Musculoskeletal: Reports: No Symptoms Skin: Reports: No Symptoms Psychiatric: Reports: No Symptoms Neurological: Reports: No Symptoms Hematologic/Lymphatic: Reports: No Symptoms Immunologic: Reports: No Symptoms L&D Exam - Exam Exam: See Below - OB Specific Contraction Intensity: Moderate to Strong Movement: Active Heart Tones: Present Presentation: Vertex - Andrews Score Andrews Score Cervix Position: Anterior Andrews Score Consistency: Soft Andrews Score Effacement: >80% Andrews Score Dilation: > 5 cm Andrews Score Infant's Station: -1 ,0 Andrews Score Total: 12 - Exam General: Alert, Oriented HEENT: PERRLA, Conjunctiva Clear, EACs Clear, EOMI, Hearing Intact, Mucosa Moist & [place], Nares Patent, Normal Nasal Septum, Posterior Pharynx Clear, TMs Clear Neck: Supple, Trachea Midline Lungs: Clear to Auscultation, Normal Respiratory Effort Cardiovascular: Regular Rate, Regular Rhythm GI/Abdominal Exam: Normal Bowel Sounds, Soft, Non-Tender, No Organomegaly, No Distention, No Abnormal Bruit, No Mass, Pelvis Stable Rectal Exam: Normal Exam, Normal Rectal Tone Genitourinary: Normal external exam, Normal bimanual exam, Normal speculum exam Back Exam: Normal Inspection, Full Range of Motion Extremities: Normal Inspection, Normal Range of Motion, Non-Tender, No Pedal Edema, Normal Capillary Refill Skin: Warm, Dry, Intact Neurological: Cranial Nerves Intact, Reflexes Equal Bilateral Psychiatric: Alert, Normal Affect, Normal Mood Problem List Initiated/Reviewed/Updated: Yes Orders Last 24hrs: Active Orders 24 hr Category Date Time Status Patient Status [ADT] Routine ADT 02/07/19 02:58 Active Heart Tones [RC] CONTINUOUS Care 02/07/19 02:58 Active Non Stress Test [RC] PER UNIT ROUTINE Care 02/07/19 02:58 Active May Shower [RC] ASDIRECTED Care 02/07/19 02:58 Active Notify Provider [RC] PRN Care 02/07/19 02:58 Active Up ad Lisa [RC] ASDIRECTED Care 02/07/19 02:58 Active Vaginal Exam [RC] PRN Care 02/07/19 02:58 Active Vital Signs [RC] PER UNIT ROUTINE Care 02/07/19 02:58 Active CBC W/O DIFF,HEMOGRAM [HEME] Routine Lab 02/07/19 02:58 Ordered TYPE AND SCREEN [BBK] Routine Lab 02/07/19 02:58 Ordered Butorphanol [Stadol] Med 02/07/19 02:58 Active 1 mg IVPUSH Q1H PRN Carboprost Tromethamine [Hemabate DS] Med 02/07/19 02:58 Active 250 mcg IM ASDIRECTED PRN Lactated Ringers [Ringers, Lactated] 1,000 ml Med 02/07/19 03:00 Active IV ASDIRECTED Lidocaine 1% [Xylocaine 1%] Med 02/07/19 02:58 Active 50 ml INJECT ONETIME PRN Methylergonovine [Methergine] Med 02/07/19 02:58 Active 0.2 mg IM ASDIRECTED PRN Nalbuphine [Nubain] Med 02/07/19 02:58 Active 10 mg IVPUSH Q1H PRN Oxytocin/0.9 % Sodium Chloride [Oxytocin 30 Unit/500 ML Med 02/07/19 03:00 Active -NS] 30 unit in 500 ml IV TITRATE Sodium Chloride 0.9% [Normal Saline] Med 02/07/19 02:58 Active 10 ml IV ASDIRECTED PRN Sodium Chloride 0.9% [Saline Flush] Med 02/07/19 02:58 Active 10 ml FLUSH ASDIRECTED PRN Sodium Chloride 0.9% [Saline Flush] Med 02/07/19 02:58 Active 2.5 ml FLUSH ASDIRECTED PRN Tranexamic Acid [Cyklokapron] 1,000 mg Med 02/07/19 02:58 Active Sodium Chloride 0.9% [Normal Saline] 100 ml IV ONETIME Water For Irrigation,Sterile [Sterile Water for Med 02/07/19 02:58 Active Irrigation] 1,000 ml IRR ASDIRECTED PRN miSOPROStol [Cytotec] Med 02/07/19 02:58 Active 200 mcg PO ONETIME PRN Scalp Electrode [WOMSER] Per Unit Routine Oth 02/07/19 02:58 Ordered Peripheral IV Insertion Adult [OM.PC] Routine Oth 02/07/19 02:58 Ordered Resuscitation Status Routine Resus Stat 02/07/19 02:58 Ordered Medication Orders Butorphanol Tartrate (Stadol) 1 mg IVPUSH Q1H PRN PRN Reason: Pain Carboprost Tromethamine (Hemabate Ds) 250 mcg IM ASDIRECTED PRN PRN Reason: Post Hemorrhage Lactated Ringer's (Ringers, Lactated) 1,000 mls @ 150 mls/hr IV ASDIRECTED FRANCISCO Oxytocin/Sodium Chloride (Oxytocin 30 Unit/500 Ml-Ns) 30 unit in 500 mls @ 500 mls/hr IV TITRATE FRANCISCO Tranexamic Acid 1,000 mg/ (Sodium Chloride) 110 mls @ 660 mls/hr IV ONETIME PRN PRN Reason: Bleeding Lidocaine HCl (Xylocaine 1%) 50 ml INJECT ONETIME PRN PRN Reason: Laceration repair Methylergonovine Maleate (Methergine) 0.2 mg IM ASDIRECTED PRN PRN Reason: Post Hemorrhage Misoprostol (Cytotec) 200 mcg PO ONETIME PRN PRN Reason: Post Hemorrhage Nalbuphine HCl (Nubain) 10 mg IVPUSH Q1H PRN PRN Reason: Pain (severe 7-10) Sodium Chloride (Saline Flush) 10 ml FLUSH ASDIRECTED PRN PRN Reason: Keep Vein Open Sodium Chloride (Saline Flush) 2.5 ml FLUSH ASDIRECTED PRN PRN Reason: Keep Vein Open Sodium Chloride (Normal Saline) 10 ml IV ASDIRECTED PRN PRN Reason: IV Use Sterile Water (Sterile Water For Irrigation) 1,000 ml IRR ASDIRECTED PRN PRN Reason: delivery Assessment/Plan Comment:: Pt presented in active labor. C/C/v/0 intact. IUP 38+.
[2019-02-07] MEDS ORDERED: Docusate Sodium 100 MG Cap PO PRN (03:44)
[2019-02-07] MEDS ORDERED: Ibuprofen 400 MG Tab PO PRN (03:44)
[2019-02-07] MEDS ORDERED: Lanolin 100% Cream 7 GM Tube TOP PRN (03:44)
[2019-02-07] MEDS ORDERED: Bisacodyl 10 MG Supp RECTAL PRN (03:44)
[2019-02-07] MEDS ORDERED: Benzocaine/Menthol 20%-0.5% Spray 78 GM Cannister TOP PRN (03:44)
[2019-02-07] MEDS ORDERED: Witch Hazel Medicated Pads 40/Jar TOP PRN (03:44)
[2019-02-07] MEDS ORDERED: Acetaminophen 500 MG Tab PO PRN ×2 (03:44)
[2019-02-07] MEDS ORDERED: oxyCODONE 5 MG Tab PO PRN (03:44)
[2019-02-07] MEDS: Ibuprofen 800 MG Tab PO PRN ×2 (08:22→21:26)
--- NOTE | 2019-02-07 10:36 | OR ---
SURGEON: Dustin Ventura MD DATE OF PROCEDURE: DELIVERY NOTE: Ms. Sheriff is a 23-year-old. She is para 1-0-0-1. She is 38+ weeks. She is followed in our clinic, primarily by me. She had an uncomplicated care. Her GBS status is negative. The patient is admitted today in active labor. At the time of the admission, she was complete-complete vertex with bulging bag of water, and zero station. She had an artificial rupture of the membrane by me with clear fluid. heart rate was category 1. The patient progressed and she was able to accomplish normal spontaneous vaginal delivery of a female fetus, cried immediately. score reported to be 8 and 9. After collecting cord blood, the placenta delivered spontaneous, complete, and intact. There was no need for episiotomy and there was no perineal or labial laceration. Estimated blood loss was 250 to 300 mL. heart rate was category 1 through the entire process of short labor. There was no complication in the delivery and the labor process from this patient. LITO / VIRGIL /[id number]
--- NOTE | 2019-02-08 10:22 | PCM.DCSUM1 ---
Discharge Summary - Hospital Course Diagnosis: Stroke: No - Discharge Data Discharge Date: 02/08/19 Discharge Disposition: Home, Self-Care 01 Condition: Good - Patient Instructions Diet: Usual Diet as Tolerated Activity: As Tolerated Driving: Do Not Drive Showering/Bathing: May Shower - Discharge Plan Home Medications: Home Meds Melatonin 1 mg PO BEDTIME 07/25/17 [History] Vit Calc,Iron,Folic [ Vitamins] 1 tab PO DAILY 07/25/17 [ History] Referrals: [facility] [Outside] Dustin Ventura MD [Physician] - 03/21/19 1:30 pm - Discharge Summary/Plan Comment DC Time >30 min.: Yes - General Info Date of Service: 02/08/19 Functional Status: Reports: Pain Controlled - Review of Systems General: Reports: No Symptoms HEENT: Reports: No Symptoms Pulmonary: Reports: No Symptoms Cardiovascular: Reports: No Symptoms Gastrointestinal: Reports: No Symptoms Genitourinary: Reports: No Symptoms Musculoskeletal: Reports: No Symptoms Skin: Reports: No Symptoms Neurological: Reports: No Symptoms Psychiatric: Reports: No Symptoms - Patient Data Vitals - Most Recent: Last Vital Signs Temp 36.7 C 02/08/19 07:20 Pulse 83 02/08/19 07:20 Resp 16 02/08/19 07:20 BP 98/55 L 02/08/19 07:20 Pulse Ox 98 02/08/19 07:20 Weight - Most Recent: 82.1 kg Lab Results - Last 24 hrs: Laboratory Results - last 24 hr 02/08/19 Range/Units 05:06 Hgb 10.8 L (12.0-16.0) g/dL Hct 34.6 L (36.0-46.0) % Med Orders - Current: Current Medications Acetaminophen (Tylenol Extra Strength) 500 mg PO Q4H PRN PRN Reason: Pain Acetaminophen (Tylenol Extra Strength) 1,000 mg PO Q4H PRN PRN Reason: Pain Last Admin: 02/07/19 08:21 Dose: 1,000 mg Benzocaine/Menthol (Dermoplast Pain Relief 20%-0.5% [place]) 78 gm TOP ASDIRECTED PRN PRN Reason: Perineal Comfort Measure Bisacodyl (Dulcolax) 10 mg RECTAL ONETIME PRN PRN Reason: Constipation Butorphanol Tartrate (Stadol) 1 mg IVPUSH Q1H PRN PRN Reason: Pain Carboprost Tromethamine (Hemabate Ds) 250 mcg IM ASDIRECTED PRN PRN Reason: Post Hemorrhage Docusate Sodium (Colace) 100 mg PO BID PRN PRN Reason: Constipation Last Admin: 02/07/19 21:26 Dose: 100 mg Emollient Ointment (Lansinoh Hpa) 0 gm TOP ASDIRECTED PRN PRN Reason: Sore Nipples Lactated Ringer's (Ringers, Lactated) 1,000 mls @ 150 mls/hr IV ASDIRECTED FRANCISCO Oxytocin/Sodium Chloride (Oxytocin 30 Unit/500 Ml-Ns) 30 unit in 500 mls @ 500 mls/hr IV TITRATE FRANCISCO Tranexamic Acid 1,000 mg/ (Sodium Chloride) 110 mls @ 660 mls/hr IV ONETIME PRN PRN Reason: Bleeding Ibuprofen (Motrin) 400 mg PO Q4H PRN PRN Reason: Pain Ibuprofen (Motrin) 800 mg PO Q6H PRN PRN Reason: Pain Last Admin: 02/07/19 21:26 Dose: 800 mg Lidocaine HCl (Xylocaine 1%) 50 ml INJECT ONETIME PRN PRN Reason: Laceration repair Methylergonovine Maleate (Methergine) 0.2 mg IM ASDIRECTED PRN PRN Reason: Post Hemorrhage Misoprostol (Cytotec) 200 mcg PO ONETIME PRN PRN Reason: Post Hemorrhage Nalbuphine HCl (Nubain) 10 mg IVPUSH Q1H PRN PRN Reason: Pain (severe 7-10) Oxycodone HCl (Oxycodone) 5 mg PO Q2H PRN PRN Reason: Pain Sodium Chloride (Saline Flush) 10 ml FLUSH ASDIRECTED PRN PRN Reason: Keep Vein Open Sodium Chloride (Saline Flush) 2.5 ml FLUSH ASDIRECTED PRN PRN Reason: Keep Vein Open Sodium Chloride (Normal Saline) 10 ml IV ASDIRECTED PRN PRN Reason: IV Use Sterile Water (Sterile Water For Irrigation) 1,000 ml IRR ASDIRECTED PRN PRN Reason: delivery Witch Che (Tucks) 1 pad TOP ASDIRECTED PRN PRN Reason: comfort care Discontinued Medications Oxytocin (Pitocin) Confirm Administered Dose 10 unit .ROUTE .STK-MED ONE Stop: 02/07/19 03:10 Last Admin: 02/07/19 03:38 Dose: 10 unit - Exam General: Reports: Alert, Oriented HEENT: Reports: Pupils Equal, Pupils Reactive, EOMI, Mucous Membr. Moist/[place] Neck: Reports: Supple Lungs: Reports: Clear to Auscultation, Normal Respiratory Effort Cardiovascular: Reports: Regular Rate, Regular Rhythm GI/Abdominal Exam: Normal Bowel Sounds, Soft, Non-Tender, No Organomegaly, No Distention, No Abnormal Bruit, No Mass, Pelvis Stable (Female) Exam: Normal External Exam, Normal Speculum Exam, Normal Bimanual Exam Rectal (Female) Exam: Normal Exam, Normal Rectal Tone Back Exam: Reports: Normal Inspection, Full Range of Motion Extremities: Normal Inspection, Normal Range of Motion, Non-Tender, No Pedal Edema, Normal Capillary Refill Skin: Reports: Warm, Dry, Intact Wound/Incisions: Reports: Healing Well Neurological: Reports: No New Focal Deficit Psy/Mental Status: Reports: Alert, Normal Affect, Normal Mood
[2019-02-08 16:18] VITALS: BP 108/69
== END 2019-02-08 17:56 | disposition home or self-care (01) | DRG 807 ==
LOC: MW.OBCHECK 02:48 → MW.OB 02:49 → MW.OBCHECK 02:58 → MW.OB 02:58 → OBSVTOIN 03:37 → MW.OB 06:25
PROVIDERS: ADMIT Obstetrics & Gynecology; ATTEND Obstetrics & Gynecology
PROC: 10E0XZZ Delivery of Products of Conception, External Approach (ICD-10-PCS; principal; 2019-02-07)
PROC: 10907ZC Drainage of Amniotic Fluid, Therapeutic from Products of Conception, Via Natural or Artificial Opening (ICD-10-PCS; 2019-02-07)
DX: O80 Encounter for full-term uncomplicated delivery (principal); Z37.0 Single live birth; Z3A.38 38 weeks gestation of pregnancy
CPT/HCPCS: 36415; 59025; 59409; 85014; 85018; 85027; 86850; 86900; 86901; A9270-GY; J2590